=== PATIENT | female | born 1995 | race Caucasian/White ===

== ENCOUNTER 2021-10-12 22:02 | Emergency (ER) | payer SELFPAY ==
[~2021-10-12] VITALS: Ht 167.6 cm; Wt 100.0 kg
[2021-10-12 22:04] VITALS: BP 112/76
[2021-10-12] MEDS ORDERED: ACETAMINOPHEN 325MG TABLET PO STA (22:11)
== END 2021-10-13 04:22 | disposition left against medical advice (07) ==
LOC: ER 22:02
DX: R10.31 Right lower quadrant pain (principal); R10.11 Right upper quadrant pain; K80.80 Other cholelithiasis without obstruction; N83.201 Unspecified ovarian cyst, right side
CPT/HCPCS: 93005; 99283